=== PATIENT | male | born 1955 | race Caucasian/White ===

== ENCOUNTER 2017-10-21 22:24 | Emergency (ER) | payer OTHER ==
[~2017-10-21] VITALS: Ht 182.8 cm; Wt 111.1 kg
[~2017-10-21 22:24] MED LIST: AMOXICILLI200 MG/51 PO; AMOXICILLIN500 MG PO; CEPHALEXIN500 M1 PO; DAYPRO600 M1 PO; MOTRIN800 MG PO; NKHM; PRILOSEC20 M2 PO; VIBRAMYCIN100 MG PO; VICODIN ES 7501 TAB PO; [UNRECOGNIZED DRUG - OTHER] PO
== END 2017-10-21 23:29 | disposition home or self-care (01) ==
LOC: ED 22:24
DX: S50.11XA Contusion of right forearm, initial encounter (principal); F17.200 Nicotine dependence, unspecified, uncomplicated; Z79.899 Other long term (current) drug therapy; W00.0XXA Fall on same level due to ice and snow, initial encounter; Y93.89 Activity, other specified; Y92.89 Other specified places as the place of occurrence of the external cause; Y99.8 Other external cause status

== ENCOUNTER → 2018-08-13 | Outpatient (CLI) | payer OTHER | END | disposition home or self-care (01) | LOC: ORTHO 01:26 | DX: M25.531 Pain in right wrist (principal) ==

== ENCOUNTER → 2018-10-09 | Outpatient (CLI) | payer OTHER ==
[~2018-10-09] MED LIST changes: +FISH OIL 1,0001 EAC1 PO; +LIPITOR20 MG PO; +NORCO 5-325 TA1 EACH PO; +NORVASC5 MG PO; +OMEPRAZOLE40 MG PO; +PRILOSEC20 M1 PO; +VITAMIN D5000 UNI1 PO; +ZOFRAN4 MG PO
[2018-10-09 12:21] LABS: BILIRUBIN NEGATIVE (NEGATIVE); BLOOD TRACE-LYSED (NEGATIVE); CLARITY SL CLOUDY (CLEAR); COLOR YELLOW (YELLOW); GLUCOSE NEGATIVE (NEGATIVE); KETONE NEGATIVE (NEGATIVE); LEUKO ESTERASE NEGATIVE (NEGATIVE); NITRITE NEGATIVE (NEGATIVE); SPECIFIC GRAVITY 1.025 (1.005-1.030)
[2018-10-09 12:36] LABS: BASO # 0.1 10*3/uL (0.0-0.1); BASO % 1.7 % (0.0-1.0); EOS # 0.2 10*3/uL (0.0-0.4); EOS % 2.8 % (1.0-4.0); HEMATOCRIT 39.1 % (42.0-52.0); HEMOGLOBIN 12.9 g/dl (14.0-18.0); LYMPH # 1.7 10*3/uL (1.3-4.4); LYMPH % 23.5 % (27.0-41.0); MEAN CELL VOLUME 91.4 fl (80.0-94.0); MEAN CORPUSCULAR HGB 30.1 pg (27.0-31.0); MEAN PLATELET VOLUME 9.6 fl (9.6-12.3); MONO # 0.7 10*3/uL (0.1-1.0); MONO % 9.8 % (3.0-9.0); NEUT # 4.3 10*3/uL (2.3-7.9); NEUT % 61.8 % (47.0-73.0); PLATELET COUNT AUTOMATED 353 10*3/uL (130-400); RED BLOOD COUNT 4.28 10*6/uL (4.50-5.90); RED CELL DISTRI WIDTH 14.4 % (0-14.5)
[2018-10-09 12:50] LABS: BUN 12 mg/dl (7-24); CHLORIDE 106 mmol/L (98-107); SODIUM 141 mmol/L (136-145)
[2018-10-09 12:51] LABS: CREATININE 1.14 mg/dL (0.70-1.30)
[2018-10-09 13:20] LABS: BACTERIA TRACE; MUCOUS 1+
== END | disposition home or self-care (01) ==
LOC: LAB 10:38
PROVIDERS: Orthopaedic Surgery
DX: G56.01 Carpal tunnel syndrome, right upper limb (principal)

== ENCOUNTER → 2018-10-16 | Day surgery (SDC) | payer OTHER ==
[2018-10-09 10:54] VITALS: BP 145/62
[~2018-10-16] VITALS: Ht 182.8 cm; Wt 114.3 kg
[~2018-10-16] MED LIST changes: -NORCO 5-325 TA1 EACH PO; -ZOFRAN4 MG PO
== END | disposition home or self-care (01) ==
LOC: SDC 10-09 11:00
DX: G56.01 Carpal tunnel syndrome, right upper limb (principal); K21.9 Gastro-esophageal reflux disease without esophagitis; I10 Essential (primary) hypertension; E78.00 Pure hypercholesterolemia, unspecified

== ENCOUNTER → 2018-10-21 | Outpatient (CLI) | payer OTHER | END | disposition home or self-care (01) | LOC: CT 14:00 | DX: K44.9 Diaphragmatic hernia without obstruction or gangrene (principal); R06.02 Shortness of breath; R09.89 Other specified symptoms and signs involving the circulatory and respiratory systems ==

== ENCOUNTER → 2018-11-24 | Outpatient (CLI) | payer OTHER ==
[~2018-11-24] MED LIST changes: +NORCO 5-325 TA1 EACH PO; +ZOFRAN4 MG PO
== END | disposition home or self-care (01) ==
LOC: US 16:00
DX: E04.1 Nontoxic single thyroid nodule (principal); R09.89 Other specified symptoms and signs involving the circulatory and respiratory systems

== ENCOUNTER → 2019-01-22 | Outpatient (CLI) | payer OTHER ==
--- NOTE | ~2019-01-22 | EKG ---
[place], [place] ELECTROCARDIOGRAM REPORT NAME: DEE PARRA UNIT #: [id number] ROOM: DOCTOR: EPIPHANY DRAFT REPORT BIRTHDATE: [birth year] [facility] Test Date: 2019-01-22 Test Time: 11:11:24 Pat Name: DEE PARRA Department: Room: Gender: [employer]: Iram Spicer : 1955 Requested By: DESIREE RICO Order Number: [id number] Reading MD: Maegan Ruelas MD Measurements Intervals Byron Rate: 80 P: 28 ND: 197 QRS: -27 QRSD: 97 T: 47 QT: 393 QTc: 454 Interpretive Statements Sinus rhythm Inferior infarct, old Compared to ECG 10/09/2018 12:30:22 Myocardial infarct finding now present Electronically Signed On 01-22-2019 12:35:26 PDT by Maegan Ruelas MD CM:EKGRPT:ELECTROCARDIOGRAM REPORT [id number] DESIREE DEL ROSARIO DRAFT REPORT DESIREE RICO DO
[2019-01-22 11:17] LABS: BASO # 0.1 10*3/uL (0.0-0.1); BASO % 1.5 % (0.0-1.0); EOS # 0.1 10*3/uL (0.0-0.4); EOS % 1.6 % (1.0-4.0); HEMATOCRIT 39.1 % (42.0-52.0); HEMOGLOBIN 12.7 g/dl (14.0-18.0); LYMPH # 1.7 10*3/uL (1.3-4.4); MEAN CELL VOLUME 91.6 fl (80.0-94.0); MEAN CORPUSCULAR HGB 29.7 pg (27.0-31.0); MEAN CORPUSCULAR HGB CONC 32.5 g/dl (33.0-37.0); MONO # 0.8 10*3/uL (0.1-1.0); NEUT % 59.8 % (47.0-73.0); PLATELET COUNT AUTOMATED 329 10*3/uL (130-400); RED BLOOD COUNT 4.27 10*6/uL (4.50-5.90); RED CELL DISTRI WIDTH 14.7 % (0-14.5); WHITE BLOOD COUNT 6.7 10*3/uL (4.8-10.8)
[2019-01-22 11:41] LABS: CREATININE 1.48 mg/dL (0.70-1.30); POTASSIUM 4.1 mmol/L (3.5-5.1)
== END | disposition home or self-care (01) ==
LOC: LAB 10:19
PROVIDERS: Orthopaedic Surgery
DX: G56.01 Carpal tunnel syndrome, right upper limb (principal); I10 Essential (primary) hypertension; Z87.891 Personal history of nicotine dependence

== ENCOUNTER → 2019-01-29 | Day surgery (SDC) | payer OTHER ==
[2019-01-22 10:30] VITALS: BP 126/80
[~2019-01-29] VITALS: Ht 182.8 cm; Wt 118.8 kg
[2019-01-29 07:17] VITALS: BP 119/83
[2019-01-29 08:40] VITALS: BP 118/74
[2019-01-29 08:55] VITALS: BP 123/79
[2019-01-29 09:10] VITALS: BP 121/80
== END | disposition home or self-care (01) ==
LOC: SDC 01-22 10:15
DX: G56.01 Carpal tunnel syndrome, right upper limb (principal); M65.841 Other synovitis and tenosynovitis, right hand; K21.9 Gastro-esophageal reflux disease without esophagitis; I10 Essential (primary) hypertension; F17.210 Nicotine dependence, cigarettes, uncomplicated; M19.90 Unspecified osteoarthritis, unspecified site; E78.5 Hyperlipidemia, unspecified; Z79.899 Other long term (current) drug therapy; Z98.890 Other specified postprocedural states; Z83.3 Family history of diabetes mellitus; Z82.49 Family history of ischemic heart disease and other diseases of the circulatory system

== ENCOUNTER → 2019-04-02 | Outpatient (CLI) | payer OTHER ==
--- NOTE | ~2019-04-02 | PF ---
[place], [place] PULMONARY FUNCTION TEST NAME: DEE PARRA UNIT #: [id number] ROOM: DOCTOR: GERALDO JHONSON MD,RIGOBERTO BIRTHDATE: [birth year] DOS: 04/02/2019 PROCEDURE: Spirometry bronchodilator. ORDERED BY: Dr. Mary Jo Juarez. HISTORY: The patient is recorded as a 63-year-old male, height of 72 inches, weight of 272 pounds, BMI 37.4. The testing done for the patient with the symptoms of recurrent bronchitis with shortness of breath with exertion. Tobacco use 1.5 packs of cigarettes per day was reported for 50 years. SPIROMETRY: The FVC 3.33 liters, 62% predicted value, FEV1 2.29 liters, 61% predicted value. Ratio of FEV1/FVC was recorded as 76%. Partial improvement noted post-bronchodilator of no clinical significance. The flow volume loop was suggestive of obstructive airway pattern. FINAL IMPRESSION: Consideration of obstructive lung disease would be noted with moderate reduction of the FEV1. Restrictive lung disease cannot be excluded because of lack of the complete pulmonary function test including assessment for the lung volumes. RIGOBERTO CHOW MD CM:PFREPORT:PULMONARY FUNCTION TEST [id number] RIGOBERTO JOHNSON MD
== END | disposition home or self-care (01) ==
LOC: CP 08:21
DX: J41.1 Mucopurulent chronic bronchitis (principal); F17.210 Nicotine dependence, cigarettes, uncomplicated

== ENCOUNTER → 2019-10-21 | Outpatient (CLI) | payer OTHER | END | disposition home or self-care (01) | LOC: ORTHO 00:22 | DX: M79.641 Pain in right hand (principal) ==

== ENCOUNTER → 2020-03-18 | Outpatient (CLI) | payer OTHER | END | disposition home or self-care (01) | LOC: RAD 09:13 | DX: J44.1 Chronic obstructive pulmonary disease with (acute) exacerbation (principal); K21.9 Gastro-esophageal reflux disease without esophagitis; I10 Essential (primary) hypertension; J34.9 Unspecified disorder of nose and nasal sinuses; F17.210 Nicotine dependence, cigarettes, uncomplicated ==

== ENCOUNTER → 2020-04-05 | Outpatient (CLI) | payer OTHER | END | disposition home or self-care (01) | LOC: CT 09:44 | DX: K76.0 Fatty (change of) liver, not elsewhere classified (principal); J98.11 Atelectasis; J84.10 Pulmonary fibrosis, unspecified; K44.9 Diaphragmatic hernia without obstruction or gangrene; Z01.812 Encounter for preprocedural laboratory examination ==

== ENCOUNTER 2020-06-22 08:47 | Emergency (ER) | payer OTHER ==
[~2020-06-22] VITALS: Ht 182.8 cm; Wt 140.2 kg
[2020-06-22 09:23] LABS: BASO # 0.1 10*3/uL (0.0-0.1); BASO % 0.4 % (0.0-1.0); EOS % 0.1 % (1.0-4.0); HEMATOCRIT 41.1 % (42.0-52.0); LYMPH # 0.7 10*3/uL (1.3-4.4); LYMPH % 4.6 % (27.0-41.0); MEAN CELL VOLUME 95.6 fl (80.0-94.0); MEAN CORPUSCULAR HGB CONC 31.4 g/dl (33.0-37.0); MEAN PLATELET VOLUME 10.2 fl (9.6-12.3); MONO # 0.8 10*3/uL (0.1-1.0); MONO % 5.4 % (3.0-9.0); NEUT # 13.7 10*3/uL (2.3-7.9); NEUT % 89.2 % (47.0-73.0); PLATELET COUNT AUTOMATED 317 10*3/uL (130-400); WHITE BLOOD COUNT 15.3 10*3/uL (4.8-10.8)
[2020-06-22 09:34] LABS: ACT PARTIAL THROMBO TIME 25.9 SECONDS (20.0-32.1); INTERNATIONAL NORM RATIO 0.9 (2.0-3.5)
[2020-06-22 09:39] LABS: ALBUMIN 3.2 gm/dl (3.1-4.5); ALKALINE PHOSPHATASE 101 U/L (45-117); BUN 15 mg/dl (7-24); CHLORIDE 104 mmol/L (98-107); CREATININE 1.38 mg/dL (0.70-1.30); POTASSIUM 4.1 mmol/L (3.5-5.1); SGOT/AST 30 IU/L (3-35); SGPT/ALT 41 U/L (12-78); SODIUM 139 mmol/L (136-145); TOTAL PROTEIN 7.4 gm/dL (6.4-8.2)
[2020-06-22 09:48] LABS: TROPONIN I < 0.015 ng/ml (<0.045)
[2020-06-22] MEDS ORDERED: LEVOFLOXACIN500 MG PO (12:47)
== END 2020-06-22 12:57 | disposition home or self-care (01) ==
LOC: ED 08:47
PROVIDERS: Emergency Medicine
DX: J18.9 Pneumonia, unspecified organism (principal); K21.9 Gastro-esophageal reflux disease without esophagitis; I10 Essential (primary) hypertension; E78.00 Pure hypercholesterolemia, unspecified; J44.9 Chronic obstructive pulmonary disease, unspecified; Z79.899 Other long term (current) drug therapy; Z87.891 Personal history of nicotine dependence

== ENCOUNTER → 2020-09-15 | Outpatient (CLI) | payer OTHER ==
[~2020-09-15] MED LIST changes: +LEVOFLOXACIN500 MG PO
== END | disposition home or self-care (01) ==
LOC: RAD 10:07
PROVIDERS: ATTEND Nurse Practitioner Primary Care
DX: K44.9 Diaphragmatic hernia without obstruction or gangrene (principal)

== ENCOUNTER → 2020-12-16 | Outpatient (CLI) | payer OTHER | END | disposition home or self-care (01) | LOC: COVID19 15:34 | PROVIDERS: ATTEND Internal Medicine Gastroenterology | DX: Z01.818 Encounter for other preprocedural examination (principal); Z20.822 Contact with and (suspected) exposure to COVID-19 ==

== ENCOUNTER 2021-04-02 08:04 | Inpatient (IN) | payer OTHER ==
[~2021-04-02] VITALS: Ht 185.4 cm; Wt 128.5 kg
[2021-04-02 08:27] VITALS: BP 117/97
[2021-04-02 08:50] LABS: BASO # 0.1 10*3/uL (0.0-0.1); BASO % 0.5 % (0.0-1.0); EOS % 0.2 % (1.0-4.0); HEMATOCRIT 41.5 % (42.0-52.0); LYMPH % 7.5 % (27.0-41.0); MEAN CELL VOLUME 93.5 fl (80.0-94.0); MEAN CORPUSCULAR HGB 30.2 pg (27.0-31.0); MEAN CORPUSCULAR HGB CONC 32.3 g/dl (33.0-37.0); MEAN PLATELET VOLUME 10.1 fl (9.6-12.3); MONO # 1.1 10*3/uL (0.1-1.0); MONO % 8.6 % (3.0-9.0); NEUT # 10.9 10*3/uL (2.3-7.9); PLATELET COUNT AUTOMATED 327 10*3/uL (130-400); RED BLOOD COUNT 4.44 10*6/uL (4.50-5.90); WHITE BLOOD COUNT 13.1 10*3/uL (4.8-10.8)
[2021-04-02 09:09] LABS: ALBUMIN 2.8 gm/dl (3.1-4.5); CREATININE 1.5 mg/dL (0.70-1.30); POTASSIUM 3.7 mmol/L (3.5-5.1); TOTAL PROTEIN 7.9 gm/dL (6.4-8.2)
[2021-04-02] MEDS ORDERED: LEVOTHYROXINE75 MCG PO (10:36)
[2021-04-02 10:37] VITALS: BP 146/70
[2021-04-02] MEDS ORDERED: PROVENTIL HFA6.7 GM INH (10:37)
[2021-04-02] MEDS ORDERED: PROAIR HFA8.5 GM INH (10:38)
[2021-04-02] MEDS ORDERED: OMEPRAZOLE40 MG PO (10:41)
[2021-04-02 11:00] VITALS: BP 119/82
[2021-04-02 11:05] VITALS: BP 119/82
[2021-04-02] MEDS ORDERED: MIRALAX17 GM PO (12:03)
[2021-04-02] MEDS ORDERED: GLUCOPHAGE500 M1 PO (12:03)
[2021-04-02] MEDS ORDERED: IRON325 M1 PO (12:05)
[2021-04-02] MEDS ORDERED: CYCLOBENZAPRINE10 MG PO (14:40)
[2021-04-02] MEDS ORDERED: NORVASC10 MG PO (14:41)
[2021-04-02] MEDS ORDERED: Synthroid,Levo50 MCG PO (14:42)
[2021-04-02 16:00] VITALS: BP 123/66
[2021-04-02 20:00] VITALS: BP 137/76
[2021-04-02 21:55] LABS: BILIRUBIN Negative (Negative); BLOOD 1+ (Negative); CLARITY Cloudy (Clear); COLOR Yellow (Yellow); GLUCOSE Negative (Negative); KETONE Negative (Negative); LEUKO ESTERASE Negative (Negative); NITRITE Negative (Negative); PH 5.5 (4.5-8.0); UROBILINOGEN 0.2 E.U./dl (0.0-1.0)
[2021-04-02 22:09] LABS: BACTERIA 2+; WBC 0-2 wbc/hpf (0-5)
[2021-04-02 22:10] LABS: CALCIUM OXALATE CRYSTALS 2+
[2021-04-03] VITALS: BP 129/79
[2021-04-03 06:30] LABS: HEMATOCRIT 40.8 % (42.0-52.0); MEAN CELL VOLUME 94.2 fl (80.0-94.0); MEAN CORPUSCULAR HGB 29.8 pg (27.0-31.0); MEAN CORPUSCULAR HGB CONC 31.6 g/dl (33.0-37.0); MEAN PLATELET VOLUME 10.1 fl (9.6-12.3); PLATELET COUNT AUTOMATED 317 10*3/uL (130-400); RED BLOOD COUNT 4.33 10*6/uL (4.50-5.90); RED CELL DISTRI WIDTH 14.8 % (0-14.5); WHITE BLOOD COUNT 10.7 10*3/uL (4.8-10.8)
[2021-04-03 06:45] LABS: ALBUMIN 2.6 gm/dl (3.1-4.5); ALKALINE PHOSPHATASE 88 U/L (45-117); BUN 15 mg/dl (7-24); CHLORIDE 106 mmol/L (98-107); CREATININE 1.39 mg/dL (0.70-1.30); POTASSIUM 3.6 mmol/L (3.5-5.1); SGOT/AST 28 IU/L (3-35); SGPT/ALT 33 U/L (12-78); SODIUM 137 mmol/L (136-145); TOTAL PROTEIN 7.1 gm/dL (6.4-8.2)
[2021-04-03 07:04] LABS: PLATELET SUFFICIENCY NORMAL (NORMAL); TOTAL CELLS COUNTED 100 #CELLS
[2021-04-03 07:25] LABS: BILIRUBIN Negative (Negative); BLOOD 1+ (Negative); CLARITY Cloudy (Clear); COLOR Yellow (Yellow); GLUCOSE Negative (Negative); KETONE Negative (Negative); LEUKO ESTERASE Negative (Negative); NITRITE Negative (Negative); PH 5.5 (4.5-8.0); UROBILINOGEN 0.2 E.U./dl (0.0-1.0)
[2021-04-03 07:49] LABS: RBC 21-30 rbc/hpf (0-2)
[2021-04-03 07:50] LABS: BACTERIA 1+; URIC ACID CRYSTALS 3+
[2021-04-03 08:00] VITALS: BP 128/72
[2021-04-03] MEDS ORDERED: FLAGYL500 MG PO (10:43)
[2021-04-03] MEDS ORDERED: CIPRO500 MG PO (10:43)
== END 2021-04-03 13:14 | disposition home or self-care (01) | DRG 720 ==
LOC: ED 08:04 → EDHOLD 10:03 → 5E 10:03
PROVIDERS: Emergency Medicine; Student in an Organized Health Care Education/Training Program; ADMIT Emergency Medicine; ATTEND Emergency Medicine
DX: A41.9 Sepsis, unspecified organism (principal); K52.9 Noninfective gastroenteritis and colitis, unspecified; E88.09 Other disorders of plasma-protein metabolism, not elsewhere classified; D64.9 Anemia, unspecified; K76.0 Fatty (change of) liver, not elsewhere classified; K44.9 Diaphragmatic hernia without obstruction or gangrene; K21.9 Gastro-esophageal reflux disease without esophagitis; K40.90 Unilateral inguinal hernia, without obstruction or gangrene, not specified as recurrent; R79.89 Other specified abnormal findings of blood chemistry; E11.65 Type 2 diabetes mellitus with hyperglycemia; J44.9 Chronic obstructive pulmonary disease, unspecified; E78.5 Hyperlipidemia, unspecified; E66.01 Morbid (severe) obesity due to excess calories; Z87.891 Personal history of nicotine dependence; Z87.01 Personal history of pneumonia (recurrent); Z91.81 History of falling; Z83.3 Family history of diabetes mellitus; Z82.49 Family history of ischemic heart disease and other diseases of the circulatory system; Z79.899 Other long term (current) drug therapy; Z68.37 Body mass index [BMI] 37.0-37.9, adult; E44.0 Moderate protein-calorie malnutrition; N17.0 Acute kidney failure with tubular necrosis

== ENCOUNTER 2021-10-15 22:56 | Emergency (ER) | payer OTHER ==
[~2021-10-15] VITALS: Ht 182.8 cm; Wt 132.9 kg
[~2021-10-15 22:56] MED LIST changes: +CIPRO500 MG PO; +CYCLOBENZAPRINE10 MG PO; +FLAGYL500 MG PO; +GLUCOPHAGE500 M1 PO; +IRON325 M1 PO; +LEVOTHYROXINE75 MCG PO; +MIRALAX17 GM PO; +NORVASC10 MG PO; +PROAIR HFA8.5 GM INH; +PROVENTIL HFA6.7 GM INH; +Synthroid,Levo50 MCG PO
[2021-10-15 23:39] LABS: ABG BASE EXCESS -24.1 mmol/L (-2.0-2.0); ARTERIAL BLOOD GAS PO2 59.1 (80-90)
[2021-10-15 23:42] LABS: ARTERIAL BLOOD GAS PH 6.722 (7.35-7.45)
== END 2021-10-16 05:27 ==
LOC: ED 22:56
PROVIDERS: Emergency Medicine
DX: I46.9 Cardiac arrest, cause unspecified (principal); J44.9 Chronic obstructive pulmonary disease, unspecified; E11.9 Type 2 diabetes mellitus without complications; K21.9 Gastro-esophageal reflux disease without esophagitis; E78.5 Hyperlipidemia, unspecified; Z79.899 Other long term (current) drug therapy